=== PATIENT | male | born 1960 | race Two or more races ===

== ENCOUNTER 2019-08-13 14:58 | Emergency (ER) | payer OTHER ==
[~2019-08-13] VITALS: Ht 165.1 cm; Wt 90.7 kg
[2019-08-13] MEDS ORDERED: AMLODIPINE BESY10 MG (15:29)
== END 2019-08-13 17:35 | disposition home or self-care (01) ==
LOC: ER 14:58 → CPU-OBS 15:28 → ER 17:35
DX: I63.89 Other cerebral infarction (principal); R07.89 Other chest pain; R47.1 Dysarthria and anarthria; R47.01 Aphasia; G81.91 Hemiplegia, unspecified affecting right dominant side; R20.0 Anesthesia of skin; I10 Essential (primary) hypertension

== ENCOUNTER 2019-08-18 12:12 | Emergency (ER) | payer OTHER ==
[~2019-08-18] VITALS: Ht 165.1 cm; Wt 99.8 kg
[~2019-08-18 12:12] MED LIST: AMLODIPINE BESY10 MG
== END 2019-08-18 19:40 | disposition home or self-care (01) ==
LOC: ER 12:12
DX: H81.11 Benign paroxysmal vertigo, right ear (principal)

== ENCOUNTER 2022-03-31 13:51 | Outpatient (CLI) | payer OTHER | END 2022-03-31 14:06 | disposition home or self-care (01) | LOC: RAD 13:51 | PROVIDERS: ATTEND General Practice | DX: S83.242A Other tear of medial meniscus, current injury, left knee, initial encounter (principal) ==

== ENCOUNTER 2023-01-22 08:04 | Emergency (ER) | payer OTHER ==
[~2023-01-22] VITALS: Ht 165.1 cm; Wt 95.3 kg
== END 2023-01-22 11:26 | disposition home or self-care (01) ==
LOC: ER 08:04
DX: H57.11 Ocular pain, right eye (principal); I10 Essential (primary) hypertension
CPT/HCPCS: 96372; 99284; J1885

== ENCOUNTER 2023-02-02 19:30 | Emergency (ER) | payer OTHER ==
[~2023-02-02] VITALS: Ht 165.1 cm; Wt 95.3 kg
[2023-02-02] MEDS ORDERED: ATORVASTATIN CA10 MG PO (20:01)
== END 2023-02-02 22:12 | disposition home or self-care (01) ==
LOC: ER 19:30
DX: H57.11 Ocular pain, right eye (principal)
CPT/HCPCS: 96372; 99284; J1100; J1885

== ENCOUNTER 2024-03-08 13:46 | Outpatient (CLI) | payer OTHER ==
[~2024-03-08 13:46] MED LIST changes: +ATORVASTATIN CA10 MG PO
== END 2024-03-08 13:51 | disposition home or self-care (01) ==
LOC: RAD 13:46
PROVIDERS: ATTEND General Practice
DX: M79.672 Pain in left foot (principal)

== ENCOUNTER → 2024-03-27 07:12 | Outpatient (CLI) | payer OTHER | END | disposition home or self-care (01) | LOC: NUCLEAR 07:12 | PROVIDERS: ATTEND General Practice | DX: I87.2 Venous insufficiency (chronic) (peripheral) (principal) ==

== ENCOUNTER 2024-03-28 07:18 | Outpatient (CLI) | payer OTHER | END 2024-03-28 07:20 | disposition home or self-care (01) | LOC: NUCLEAR 07:18 | PROVIDERS: ATTEND General Practice | DX: I87.2 Venous insufficiency (chronic) (peripheral) (principal) ==

== ENCOUNTER 2024-04-05 13:03 | Outpatient (CLI) | payer OTHER | END 2024-04-05 13:06 | disposition home or self-care (01) | LOC: RAD 13:03 | PROVIDERS: ATTEND General Practice | DX: M51.369 Other intervertebral disc degeneration, lumbar region without mention of lumbar back pain or lower extremity pain (principal) ==

== ENCOUNTER 2024-04-15 19:53 | Emergency (ER) | payer OTHER ==
[~2024-04-15] VITALS: Ht 165.1 cm; Wt 95.7 kg
[2024-04-15] MEDS ORDERED: PEPCID AC20 MG PO (20:30)
[2024-04-15] MEDS ORDERED: CEPHALEXIN500 M1 PO (20:30)
== END 2024-04-15 20:39 | disposition home or self-care (01) ==
LOC: ER 19:56
DX: T22.011A Burn of unspecified degree of right forearm, initial encounter (principal); X10.1XXA Contact with hot food, initial encounter; Y93.89 Activity, other specified; Y92.89 Other specified places as the place of occurrence of the external cause

== ENCOUNTER 2024-12-25 08:18 | Emergency (ER) | payer OTHER ==
[~2024-12-25] VITALS: Ht 165.1 cm; Wt 95.3 kg
[~2024-12-25 08:18] MED LIST changes: +CEPHALEXIN500 M1 PO; +PEPCID AC20 MG PO
[2024-12-25 08:26] VITALS: BP 147/86; O2SAT 97
[2024-12-25] MEDS ORDERED: DEXAMETHASONE SODIUM PHOSP/PF 10 MG/ML VIAL IV ONE (09:00)
[2024-12-25] MEDS ORDERED: FAMOTIDINE/PF 20 MG/2 ML VIAL IV ONE (09:00)
[2024-12-25] MEDS ORDERED: ONDANSETRON HCL 2 MG/ML VIAL IV ONE (09:00)
[2024-12-25] MEDS ORDERED: 0.9 % SODIUM CHLORIDE 1,000 ML IV SCH (09:00)
[2024-12-25] MEDS ORDERED: KETOROLAC TROMETHAMINE 30 MG VIAL IV ONE (09:00)
[2024-12-25] MEDS ORDERED: KETOROLAC TROMETHAMINE 30 MG VIAL ONE (09:22)
[2024-12-25] MEDS ORDERED: DEXAMETHASONE SODIUM PHOSPHATE 4 MG/ML VIAL ONE (09:22)
[2024-12-25] MEDS ORDERED: ONDANSETRON HCL 2 MG/ML VIAL ONE (09:22)
[2024-12-25] MEDS ORDERED: FAMOTIDINE/PF 20 MG/2 ML VIAL ONE (09:23)
[2024-12-25 09:32] LABS: BASO % 0.3 % (0.1-1.2); EOS # 0.08 (0.04-0.54); EOS % 0.8 % (0.7-7.0); LYMPH # 1.66 (1.18-3.74); LYMPH % 17.5 % (19.3-53.1); MEAN PLATELET VOLUME 9.70 fl (9.4-12.4); MONO # 0.71 (0.24-0.82); MONO % 7.5 % (4.7-12.5); NEUT # 6.96 (1.56-6.13); NEUT % 73.6 % (34.0-71.1); RED CELL DISTRIBUTION WIDTH 13.1 % (11.6-14.4)
[2024-12-25 09:59] LABS: ALT/SGPT 56.0 U/L (12-78); AST/SGOT 27.0 U/L (15-37); BILIRUBIN TOTAL 0.71 mg/dL (0.3-1.2); BUN CREA RATIO 17.0 (7.0-25.0); CREATININE SERUM 0.77 mg/dL (0.70-1.30); GFR 101.08; GLOBULINA 4.2 G/DL (2.4-3.5); GLUCOSE FASTING 108.0 mg/dL (65-100); OSMOLALITY SERUM 280.0 MOSM/KG (275-295)
[2024-12-25 10:24] LABS: URINE APPEARANCE Clear; URINE BILIRRUBIN Negative (NEGATIVE); URINE BLOOD Negative; URINE COLOR Yellow; URINE GLUCOSE Negative (NEGATIVE); URINE KETONE Trace (NEGATIVE); URINE LEUKOCYTE Negative; URINE NITRATE Negative; URINE PROTEIN Negative (NEGATIVE); URINE UROBILINOGEN 0.2 E.U./dl
[2024-12-25 10:28] LABS: URINE BACTERIA 4.7 uL (0.0-1933); URINE EPITHELIAL CELLS 1.9 uL (0.0-38.8); URINE RBC 6.3 uL (0.0-20.8); URINE WBC 6.1 uL (0.0-23.2)
[2024-12-25] MEDS ORDERED: AMLODIPINE BESYLATE 10 MG TABLET PO ONE (10:45)
[2024-12-25 10:49] LABS: URINE CAST 0.14 uL (0.0-1.40)
[2024-12-25] MEDS ORDERED: TYLENOL ARTHRI650 MG PO (11:18)
[2024-12-25] MEDS ORDERED: PEPCID AC20 MG PO (11:18)
[2024-12-25] MEDS ORDERED: PROTONIX40 MG PO (11:18)
[2024-12-25] MEDS ORDERED: NORFLEX100MG PO (11:18)
== END 2024-12-25 11:38 | disposition home or self-care (01) ==
LOC: ER 08:18
PROVIDERS: Student in an Organized Health Care Education/Training Program
DX: R10.11 Right upper quadrant pain (principal); I10 Essential (primary) hypertension; K21.9 Gastro-esophageal reflux disease without esophagitis
CPT/HCPCS: 36415; 74177; 96365; 96366; 99284; J1100; J1885; J2405; J3490; J7030; Q9965